=== PATIENT | female | born 1945 | race Caucasian/White ===

== ENCOUNTER 2017-11-18 17:23 | Emergency (ER) | payer MEDICARE ==
--- OUTSIDE RECORDS SUMMARY | 2017-11-18 18:07 | XMS REPORT ---
:1945 External Reference #:[id number] Author Organization [employer] Address [address] [address] Phone [phone] Care Team Providers Name Role Phone Heidi Molina MD Primary Care Physician Unavailable Payers Type Date Identification Payment Subscriber Numbers Provider Health Maintenance Effective: Policy Number: Medicare Blue [place] Organization ([facility]) 11/10/2013 [id number] [facility] Group Number: [id number] [address] PayID: [id number] [place] [address] [id number] Health Maintenance Expires: Policy Number: Medicare Blue [place] Organization ([facility]) 11/09/2012 [id number] [facility] PayID: [id number] [address] [address] [place] [address] [address] Problems Date Description Provider Status Onset: 11/01/2015 Localized, primary osteoarthritis Tony Johnson M.D. Active Onset: 11/01/2015 Arthroplasty of knee Tony Johnson M.D. Active Social History Type Date Description Comments Smoking Patient has never smoked Allergies, Adverse Reactions, Alerts Date Description Reaction Status Severity Comments 09/28/2015 NKDA active Medications Medication Date Status Form Strength Qnty SIG Indications Ordering Provider Amoxicillin 09/02/ Active Capsules 500mg 4caps 4 tablets 1 Tony 2015 hour before Alex, dental work M.DTita Simvastatin 00/00/ Active Tablets 20mg 90tab 1 po qhs Unknown 0000 s Metformin HCL 0000/ Active Tablets 850mg 1 by mouth Unknown 0000 twice a day Amlodipine 00/00/ Active Tablets 5mg 1 by mouth Unknown Besylate 0000 every day Losartan / Active Tablets 100-25mg 1 by mouth Unknown Potassium/Hyd 0000 every day rochlorothiaz kelle Zantac / Active Tablets 150mg 1 by mouth Unknown 0000 twice a day prn heartburn Aspirin / Active Chewtabs 81mg 1 po daily Unknown 0000 Tramadol HCL 05/03/ Hx Tablets 50mg 60tab 1-2 tabs by Z96.651 Tony 2016 - s mouth q4-6 [facility], 12/03/ hours as M.D. 2016 needed pain Zofran Odt 05/02/ Hx Tablets 4mg 60tab 1-2 tabs Tony 2015 - Dispers s under the [facility], 06/13/ tongue M.D. 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 2015 as directed Coumadin 09/28/ Hx Tablets 2mg 60tab Take 1-3 Kinsey 2014 - s tabs at [place], 04/06/ dinnertime M.D. 2016 as directed Percocet 09/28/ Hx Tablets 5-325mg 60tab 1 -2 tabs Tony 2015 - s by mouth [facility], 12/03/ every 6 M.D. 2017 hours as needed pain Voltaren 01/28/ Hx Gel 1% apply Tony 2011 - directly to [facility], 04/06/ painful M.D. 2016 area Proventil HFA / Hx Aerosol 108(90Bas 1unit 2 puffs po Unknown 0000 - e) s q 4 hours 09/27/ mcg/Act prn 2014 Aspirin Low / Hx Tablets 81mg 30tab 1 po qd Unknown Dose 0000 - s 2015 Combivent / Hx Aerosol 18-103mcg 1unit 2 puffs Unknown 0000 - /Act s poqid prn 2014 Depokote / Hx 750mg every h.s. Unknown 0000 - 2014 [place] / Hx Tablets 350mg 90tab bid prn Unknown 0000 - s 2014 [place] / Hx Tablets 10-325mg 40tab 1-2 po qid Unknown 0000 - s prn 2015 Paxil / Hx Tablets 40mg 1 po qd Unknown 0000 - 2014 Fluticasone / Hx Suspension 50mcg/Act 2 sprays Unknown Propionate 0000 - each 04/06/ nostril 2016 daily as needed Ocuvite / Hx Tablets 1 by mouth Unknown 0000 - every day 2015 Claritin-D 12 / Hx Tablets ER 5-120mg 1 by mouth Unknown Hour 0000 - 12HR twice a day 04/06/ for 1 week 2015 then as needed Medications Administered in Office Medication Date Status Form Strength Qnty SIG Indications Ordering Provider Depomedrol Administered Injection Kirsten 80MG 014 MADISON Lopez Depomedrol Administered Injection Tony 80MG 014 Alicia Johnson Depomedrol Administered Injection Tony 80MG 013 Alicia Johnson Depomedrol Administered Injection Tony 80MG 013 Alicia Johnson Depomedrol Administered Injection Tony 80MG 013 Alicia Johnson Depomedrol Administered Injection Tony 80MG 012 Alicia Johnson Vital Signs Date Vital Result Comment 10/30/2017 Height 62 inches 5'2" Weight 160.00 lb Heart Rate 60 /min BP Systolic 140 mmHg BP Diastolic 84 mmHg Respiratory Rate 16 /min Body Temperature 97.8 F BMI (Body Mass Index) 29.3 kg/m2 06/18/2017 Height 62 inches 5'2" Weight 160.00 lb Heart Rate 52 /min BP Systolic 136 mmHg BP Diastolic 77 mmHg Body Temperature 97.6 F BMI (Body Mass Index) 29.3 kg/m2 12/04/2016 Height 62 inches 5'2" Weight 160.00 lb BP Systolic Sitting 132 mmHg BP Diastolic Sitting 72 mmHg Pain Level 0 BMI (Body Mass Index) 29.3 kg/m2 07/03/2016 Height 62 inches 5'2" Weight 165.00 lb Pain Level 0 BMI (Body Mass Index) 30.2 kg/m2 05/03/2016 Height 62 inches 5'2" Weight 165.00 lb Pain Level 2 BMI (Body Mass Index) 30.2 kg/m2 04/10/2016 Height 62 inches 5'2" Weight 165.00 lb Heart Rate 59 /min BP Systolic 135 mmHg BP Diastolic 76 mmHg Pain Level 0 BMI (Body Mass Index) 30.2 kg/m2 12/21/2015 Height 62 inches 5'2" Weight 165.00 lb BMI (Body Mass Index) 30.2 kg/m2 11/01/2015 Height 62 inches 5'2" Weight 165.00 lb BMI (Body Mass Index) 30.2 kg/m2 09/28/2015 Height 63 inches 5'3" Weight 165.00 lb Heart Rate 71 /min BP Systolic 140 mmHg BP Diastolic 84 mmHg BMI (Body Mass Index) 29.2 kg/m2 09/21/2014 Height 62 inches 5'2" Heart Rate 68 /min BP Systolic 125 mmHg BP Diastolic 76 mmHg 03/23/2014 Height 62 inches 5'2" Heart Rate 64 /min BP Systolic 122 mmHg BP Diastolic 81 mmHg Results Test Date Test Result H/L Range Note Urine Culture And 04/10/2016 Urine Culture SEE RESULT BELOW 1 Sensitivities Urinalysis Profile 04/10/2016 Urine Color Straw Urine Appearance Clear Urine Specific [employer] 1.006 Low 1.010-1.030 Urine pH 6.0 5-9 Urine Urobilinogen Negative Negative Urine Ketones Negative Negative Urine Protein Negative Negative Urine Leukocytes 2+ Negative Urine Blood 1+ Negative Urine Nitrite Negative Negative Urine Bilirubin Negative Negative Urine Glucose Negative Negative Urine White Blood Cell Trace(0-5/hpf) Absent Urine Red Blood Cell Trace(0-2/hpf) Absent Urine Bacteria Absent Absent Urine Squamous Epithelial Cell Present Absent Urine Transitional Epithelial Present Absent Type & Screen 04/10/2016 Patient Blood Type O Positive 2 Antibody Screen NEGATIVE 2 Basic Metabolic Panel 04/10/2016 Sodium 135 mmol/L 133-145 2 Potassium 4.0 mmol/L 3.5-5.0 2 Chloride 98 mmol/L Low 101-111 2 Co2 Carbon Dioxide 31 mmol/L 22-32 2 Anion Gap 6 mmol/L 2-11 2 Glucose 90 mg/dL 70-100 2 Blood Urea Nitrogen 15 mg/dL 6-24 2 Creatinine 0.79 mg/dL 0.51-0.95 2 BUN/Creatinine Ratio 19.0 8-20 2 Calcium 10.0 mg/dL 8.6-10.3 2 Egfr Non- 71.5 >60 2 Egfr 92.0 >60 2, 3 Inr/Protime 04/10/2016 Inr 1.02 0.89-1.11 2 CBC No Diff 04/10/2016 White Blood Count 10.8 10^3/uL 3.5-10.8 2 Red Blood Count 4.93 10^6/uL 4.0-5.4 2 Hemoglobin 13.5 g/dL 12.0-16.0 2 Hematocrit 42 % 35-47 2 Mean Corpuscular Volume 85 fL 80-97 2 Mean Corpuscular Hemoglobin 27 pg 27-31 2 Mean Corpuscular HGB Conc 32 g/dL 31-36 2 Red Cell Distribution Width 16 % High 10.5-15 2 Platelet Count 345 10^3/uL 150-450 2 Mean Platelet Volume 7 um3 Low 7.4-10.4 2 CBC No Diff 10/12/2015 White Blood Count 10.3 10^3/uL 4.8-10.8 4 Red Blood Count 4.72 10^6/uL 4.0-5.4 4 Hemoglobin 13.9 g/dL 12.0-16.0 4 Hematocrit 41 % 35-47 4 Mean Corpuscular Volume 88 fL 80-97 4 Mean Corpuscular Hemoglobin 30 pg 27-31 4 Mean Corpuscular HGB Conc 34 g/dL 31-36 4 Red Cell Distribution Width 13 % 10.5-15 4 Platelet Count 296 10^3/uL 150-450 4 Mean Platelet Volume 7 um3 Low 7.4-10.4 4 Inr/Protime 10/12/2015 Inr 1.00 0.89-1.11 4 Laboratory test finding 10/12/2015 Partial Thrombo Time 35.3 seconds 26.0 -36.3 4, 5 PTT Type & Screen 10/12/2015 Patient Blood Type O Positive 4 Antibody Screen NEGATIVE 4 Urinalysis Profile 10/12/2015 Urine Color Yellow 4 Urine Appearance Clear 4 Urine Specific [employer] 1.012 1.010-1.030 4 Urine pH 7.0 5-9 4 Urine Urobilinogen Negative Negative 4 Urine Ketones Negative Negative 4 Urine Protein Negative Negative 4 Urine Leukocytes Trace Negative 4 Urine Blood Negative Negative 4 Urine Nitrite Negative Negative 4 Urine Bilirubin Negative Negative 4 Urine Glucose Negative Negative 4 Urine White Blood Cell Trace(0-5/hpf) Absent 4 Urine Red Blood Cell Trace(0-2/hpf) Absent 4 Urine Bacteria Absent Absent 4 Urine Squamous Epithelial Cell Present Absent 4 Laboratory test 10/12/2015 Urine Culture And SEE RESULT BELOW 4, 6 finding Sensitivities 1 SEE RESULT BELOW Name: DANIA HENDERSON : [address]: Tony Johnson MD Acct: [id number] Unit: [id number] AGE: 70 Location: [facility] Re04/10/16 SEX: F Status: REG REF SPEC: [id number] TALA: 04/10/16-[address] [facility] [address]: Tony Johnson MD REQ: [id number] RECD: 04/10/16 STATUS: RIANA DUNHAM DR: Heidi Molina MD _ SOURCE: URINE SPDESC: ORDERED: Urine Culture Procedure Result Reported Site Urine Culture Final 04/11/16- 1331 ML No growth of clinically significant organisms * ML - MAIN LAB ([facility]) . END OF REPORT * ML=Testing performed at Main Lab DEPARTMENT OF PATHOLOGY, [address] [place] [address] Augusto Moreira M.D. Director [facility] # [id number] 2 04/15 3 Because ethnic data is not always readily available, this report includes an eGFR for both -Americans and non- Americans. The National Kidney Disease Education Program (NKDEP) does not endorse the use of the MDRD equation for patients that are not between the ages of 18 and 70, are , have extremes of body size, muscle mass, or nutritional status, or are non- or non-. According to the National Kidney Foundation, irrespective of diagnosis, the stage of the disease is based on the level of kidney function: Stage Description GFR(mL/min/1.73 m(2)) 1 Kidney damage with normal or decreased GFR 90 2 Kidney damage with mild decrease in GFR 60-89 3 Moderate decrease in GFR 30-59 4 Severe decrease in GFR 15-29 5 Kidney failure <15 (or dialysis) 4 10/16 5 10/16 6 SEE RESULT BELOW Name: DANIA HENDERSON : [address]: Tony oJhnson MD Acct: [id number] Unit: [id number] AGE: 70 Location: LAB Re10/12/15 SEX: F Status: REG REF SPEC: [id number] TALA: 10/12/15-[address] [facility] [address]: Tony Johnson MD REQ: [id number] RECD: 10/12/154578 STATUS: COMP _ SOURCE: URINE SPDESC: ORDERED: Urine Culture COMMENTS: DELTA 10/16 QUERIES: Urine Source: Clean Catch Procedure Result Reported Site Urine Culture Final 12/04/15- 1302 ML Few Enterobacteriacae; possible contamination. * ML - MAIN LAB ([facility]) . END OF REPORT * ML=Testing performed at Main Lab DEPARTMENT OF PATHOLOGY, [address] [place] [address] Augusto Moreira M.D. Director [facility] # [id number] Procedures Date CPT Code Description Status 10/15/2016 38293 ECHO Transthorasic Realtime 2D W Doppler & Color Completed Flow Hosp 04/15/2016 57117 TKR Total Knee Replacement Completed 04/15/2016 06154 TKR Total Knee Replacement Completed 10/16/2015 74007 TKR Total Knee Replacement Completed 10/16/2015 86976 TKR Total Knee Replacement Completed 09/28/2015 31090 EKG, Interpretation Only Completed 09/21/2014 13802 Xray Knee 3 Views Completed 09/21/2014 74916 Xray Knee 3 Views Completed 09/21/201467450 Inject/Drain Joint/Bursa Major Completed 03/23/2014 Inject/Drain Joint/Bursa Major Completed 09/15/2013 Inject/Drain Joint/Bursa Major Completed 04/15/2013 Inject/Drain Joint/Bursa Major Completed 03/25/2013 74102 Rad Exam; Knee, Ap&L Completed 03/25/2013 63076 Xray Knee 3 Views Completed 03/25/2013 39293 Xray Knee 3 Views Completed 10/19/2012 11005 Arthroscopy,Knee,Meniscectomy Medial Or Lateral Completed 10/19/2012 28962 Arthroscopy,Knee,Meniscectomy Medial Or Lateral Completed 07/31/2012 66429 Arthroscopy,Knee,Meniscectomy Medial Or Lateral Completed 07/31/2012 96931 Arthroscopy,Knee,Meniscectomy Medial Or Lateral Completed 12/13/201178459 Inject/Drain Joint/Bursa Major Completed 12/03/2011 17419 Xray Knee 3 Views Completed 12/03/2011 47404 Xray Knee 3 Views Completed 12/03/2011 67064 Rad Exam; Knee, Ap&L Completed 12/03/2011 90658 Rad Exam; Knee, Ap&L Completed Encounters Type Date Location Provider CPT E/M Dx Office Visit 06/18/2017 [facility] Tony Alex, 49863 Z96.651 11:00a Of Naina Nelson96.Joey2 Z09 Z87.39 Office Visit 12/04/2016 11:15a [facility] Tony Johnson, 49733 M17.11 Naina Vargas Z96.651 Z47.1 Office Visit 10/16/2016 9:52a [facility], [place] [address] R55 Hospitalists E11.9 I10 Office Visit 10/15/2016 9:51a [facility], [place] [address] N12 Hospitalists E11.9 R55 I10 Office Visit 10/14/2016 9:51a [facility], [place], [address] N12 Hospitalists M.DTita E11.9 R55 I10 Office Visit 04/18/2016 2:01p [facility] Carlyn Cosby, 89874 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 82445 E11.9 Hospitalists E78.5 Z96.651 I10 Office Visit 04/16/2016 2:00p [facility], Bessy Peña N.P. 30257 E11.9 Hospitalists E78.5 Z96.651 I10 Office Visit 04/15/2016 1:59p [facility], Bessy Peña N.P. 10320 E11.9 Hospitalists E78.5 Z96.651 I10 Office Visit 12/21/2015 11:45a [facility] Tony Johnson, 72337 M17.11 Of Naina Vargas Office Visit 08/15/2015 9:00a [facility] Tony Johnson 72090 M25.561 Of C.MVelvet Vargas M25.562 M17.0 Office Visit 09/21/2014 3:00p [facility] Kirsten Lopez 09881 715.96 Of C.M.Ifeoma. ANP-C Office Visit 03/23/2014 11:00a [facility] Tony Johnson M.D. 27627 715.96 Of C.M.A. Office Visit 09/15/2013 8:45a [facility] Tony Johnson M.D. 19646 715.96 Of C.M.A. Office Visit 06/23/2013 11:30a [facility] Tony Johnson M.D. 38891 715.96 Of C.M.A. Office Visit 04/15/2013 3:15p [facility] Tony oJhnson M.D. 86098 715.96 Of C.M.A. Office Visit 03/25/2013 10:30a [facility] Tony Johnson M.D. 35383 715.96 Of C.M.A. Office Visit 10/15/2012 10:30a [facility] Tony Johnson M.D. 39301 836.0 Of C.M.A. Office Visit 06/17/2012 11:00a [facility] Tony Johnson M.D. 04868 836.0 Of C.M.A. Office Visit 03/25/2012 11:00a [facility] Tony Johnson M.D. 48901 715.96 Of C.M.A. Office Visit 01/29/2012 10:15a [facility] Uche Cobb [address]15.[address] [facility] [address] Office Visit 12/25/2011 11:15a [facility] Tony Johnson M.D. 49346 715.96 Of C.M.A. Office Visit 12/13/2011 10:00a [facility] Tony Johnson M.D. 35534 715.96 Of C.M.A. 836.0 Office Visit 12/03/2011 2:30p [facility] Of Tony Johnson 92859 715.96 C.M.A. MEkta 836.0 Plan of Care Future Appointment(s):11/27/2017 9:00 am - Joe Page MD at [facility]10/30/2017 - Joe Page, MDR10.11 Right upper quadrant painFollow up:after U/S
--- NOTE | 2017-11-18 20:27 | RAD ---
INDICATION: Right-sided abdominal pain COMPARISON: CT October 14, 2016 TECHNIQUE: Longitudinal and transverse scans of the right upper quadrant were obtained. Doppler interrogation of the hepatic and portal venous system was performed. FINDINGS: Liver: There is hepatomegaly with hepatic steatosis. There may be a tiny cyst in the hepatic lobe measuring 0.8 cm. The liver measures 20 cm in cephalocaudal dimension. Vessels: There is normal hepatic and portal venous flow. Bile ducts: There is no evidence of intrahepatic or extrahepatic ductal dilatation. The common duct measures 0.4 cm. Gallbladder: There is a small amount of gallbladder sludge and gravel. There is no thickening of the gallbladder wall or pericholecystic fluid. Pancreas: The visualized pancreas appears normal Right kidney: The right kidney is normal in size and echogenicity. There is a 1.1 cm cyst in lower pole. There are no calculi. There is no evidence of hydronephrosis. The right kidney measures 10.6 x 3.8 x 4.4 cm. IVC and aorta: The aorta and superior vena cava appear normal. Fluid: There is no ascites. Other: None. IMPRESSION: SMALL AMOUNT OF GALLBLADDER SLUDGE AND GRAVEL.
[2017-11-18 21:01] VITALS: BP 166/76
--- NOTE | 2017-11-18 21:14 | RAD ---
INDICATION: Chest pain COMPARISON: September 28, 2015 TECHNIQUE: PA and lateral dual-energy views were obtained. FINDINGS: Bones/Soft Tissues: There are no acute bony findings. Cardiomediastinal: The cardiomediastinal silhouette is normal. Lungs: There are no infiltrates. Pleura: There are no pleural effusions. Other: None IMPRESSION: NO ACTIVE DISEASE.
[2017-11-18 22:18] LABS: EGFR Non-African American 72.2 (>60)
[2017-11-18 22:33] LABS: ABS Basophils 0.1 10^3/ul (0-0.2); ABS Eosinophils 0.4 10^3/ul (0-0.6); ABS Lymphocytes 2.9 10^3/ul (1.0-4.8); ABS Monocytes 0.9 10^3/ul (0-0.8); ABS Neutrophils 10.5 10^3/ul (1.5-7.7); ABS Nucleated RBC 0 10^3/ul; Eosinophil % 2.7 % (0-6); Lymphocyte % 19.6 % (25-47); Nucleated Red Blood Cells % 0.1
[2017-11-18 22:34] LABS: Hematocrit 43 % (35-47); Hemoglobin 14.5 g/dl (12.0-16.0); Mean Corpuscular HGB Conc 34 g/dl (31-36); Mean Corpuscular Hemoglobin 29 pg (27-31); Mean Corpuscular Volume 86 fL (80-97); Red Blood Count 4.96 10^6/ul (4.0-5.4); Red Cell Distribution Width 13 % (10.5-15); White Blood Count 14.9 10^3/ul (3.5-10.8)
--- NOTE | 2017-11-20 13:49 | ED ---
Julian Veronica Stephanie, scribed for Garth Flores MD on 11/18/17 at 2120 . Abdominal Pain/Female - HPI Summary HPI Summary: The pt is a 72 y/o F presenting to the ED with c/o abd pain that began 2 weeks ago. The abd pain is located in her RUQ, is described as constant, and was at its worst earlier this morning. She describes her pain as a sore muscle. Symptoms include R arm soreness. She reports in September she had a gallbladder attack and had an US of the gallbladder but never received the results. Eating does not decrease/increase the pain. The pt denies fever, chills, sweats, cough , SOB, hematuria, and dysuria. The pt describes the pain as a 7 in severity. Pt administered Tylenol CHAINSTITCH SEAT JOINER to ED. - History of Current Complaint Chief Complaint: EDAbdPain Stated Complaint: RT FLANK PAIN Hx Obtained From: Patient Onset/Duration: Gradual Onset Timing: Constant Severity Currently: Moderate Pain Intensity: 6 Pain Scale Used: 0-10 Numeric Location: Discrete At: RUQ Aggravating Factor(s): Nothing Alleviating Factor(s): Nothing Associated Signs and Symptoms: Positive: Other: - Negative: chills, SOB, hematuria, dysuria. Negative: Diaphoresis, Fever, Cough Allergies/Adverse Reactions: Allergies Allergy/AdvReac Type Severity Reaction Status Date / Time No Known Allergies Allergy Verified 04/15/16 06:31 PMH/Surg Hx/FS Hx/Imm Hx Endocrine/Hematology History: Reports: Hx Diabetes - ORAL MED TYPE II Cardiovascular History: Reports: Hx Hypertension - ON MEDS FOR, Other Cardiovascular Problems/Disorders - HIGH CHOLESTEROL, ON MEDS FOR Respiratory History: Reports: Hx Pulmonary Embolism - HX OF MANY YEARS AGO- RELATED TO SMOKING AND CONTROL, Other Respiratory Problems/Disorders - CHRONIC SINUS CONGESTION GI History: Reports: Hx Gastroesophageal Reflux Disease - ON MEDS FOR Denies: Other GI Disorders Musculoskeletal History: Reports: Hx Arthritis - BILATERAL KNEE, FINGERS Denies: Other Musculoskeletal History Sensory History: Reports: Hx Cataracts - SAUNDRA, Hx Contacts or Glasses - GLASSES Denies: Hx Hearing Aid Opthamlomology History: Reports: Hx Cataracts - SAUNDRA, Hx Contacts or Glasses - GLASSES Neurological History: Reports: Hx Migraine - IN THE PAST, Hx Seizures - WITH STRESS, PASSES OUT, THEN SEIZURE, Other Neuro Impairments/Disorders - PT VASOVAGEL STRESS INDUCED, INFREQUENT Psychiatric History: Denies: Other Psychiatric Issues/Disorders Comment Only: Hx Anxiety - PANIC ATTACKS - Cancer History Hx Chemotherapy: No Hx Radiation Therapy: No - Surgical History Surgery Procedure, Year, and Place: RIGHT KNEE ARTHROSCOPY-07/2012. SINUS SURGERY-[facility]. APPENDECTOMY. TUBAL LIGATION-[facility] Hx Anesthesia Reactions: No Infectious Disease History: No Infectious Disease History: Denies: Hx Clostridium Difficile, Hx Hepatitis, Hx Human Immunodeficiency Virus (HIV), Hx of Known/Suspected MRSA, Hx Shingles, Hx Tuberculosis, Hx Known/ Suspected VRE, Hx Known/Suspected VRSA, History Other Infectious Disease, Traveled Outside the [place] in Last 30 Days - Family History Known Family History: Positive: Unknown - Pt denies family history when asked - Social History Occupation: Employed Full-time Lives: With Family Alcohol Use: Daily Alcohol Amount: 1 GLASS OF WINE OR BEER AT NIGHT Hx Substance Use: No Substance Use Type: Reports: None Hx Tobacco Use: Yes Smoking Status (MU): Former Smoker Amount Used/How Often: PACK A DAY Have You Smoked in the Last Year: No Review of Systems Negative: Fever, Chills, Skin Diaphoresis Negative: Erythema Negative: Sore Throat Negative: Chest Pain Negative: Shortness Of Breath, Cough Negative: Abdominal Pain, Vomiting, Nausea Negative: dysuria, hematuria Negative: Myalgia, Edema Negative: Rash Neurological: Other - Negative: dizziness All Other Systems Reviewed And Are Negative: Yes Physical Exam - Summary Physical Exam Summary: Constitutional: Well-developed, Well-nourished, Alert. (-) Distressed Skin: Warm, Dry HENT: Normocephalic; Atraumatic Eyes: Conjunctiva normal Neck: Musculoskeletal ROM normal neck. (-) JVD, (-) Stridor, (-) Tracheal deviation Cardio: Rhythm regular, rate normal, Heart sounds normal; Intact distal pulses; The pedal pulses are 2+ and symmetric. Radial pulses are 2+ and symmetric. (-) Murmur Pulmonary/Chest wall: Effort normal. (-) Respiratory distress, (-) Wheezes, (-) Rales Abd: mild RUQ tenderness, (-) Distension, (-) Guarding, (-) Rebound Musculoskeletal: (-) Edema Lymph: (-) Cervical adenopathy Neuro: Alert, Oriented x3 Psych: Mood and affect Normal Triage Information Reviewed: Yes Vital Signs On Initial Exam: Initial Vitals Temp Pulse Resp BP Pulse Ox 97.7 F 67 18 168/79 98 11/18/17 17:36 11/18/17 17:36 11/18/17 17:36 11/18/17 17:36 11/18/17 17:36 Vital Signs Reviewed: Yes Diagnostics - Vital Signs Vital Signs Temp Pulse Resp BP Pulse Ox 11/18/17 17:36 97.7 F 67 18 168/79 98 - Laboratory Result Diagrams: 11/18/17 21:25 11/18/17 21:25 Lab Statement: Any lab studies that have been ordered have been reviewed, and results considered in the medical decision making process. - Radiology CXR Xray Interpretation: No Acute Changes Radiology Interpretation Completed By: Radiologist - NO ACTIVE DISEASE. - EKG 21:24 EKG Rhythm: Sinus Rhythm - 64 BPM EKG Interpretation: No STEMI - Additional Comments Diagnostic Additional Comments: US reveals: SMALL AMOUNT OF GALLBLADDER SLUDGE AND GRAVEL. Abdominal Pain Fem Course/Dx - Course Course Of Treatment: The pt is a 72 y/o F presenting to the ED with c/o abd pain that began 2 weeks ago. The pain is located in her RUQ, is constant, and worsened this morning. She reports in September she had a gallbladder attack and had an US of the gallbladder but never received the results. Eating does not decrease/increase the pain. The pt denies fever, chills, sweats, cough, SOB, hematuria, and dysuria. The pt describes the pain as a 7 in severity. Pt administered Tylenol CHAINSTITCH SEAT JOINER to ED. All pain is resolved. ED physician suspects gallstones. Pt is nontender on exam. Follow up with Dr. River on . She has pain medication at home. - Diagnoses Provider Diagnoses: Biliary colic Discharge - Discharge Plan Condition: Stable Disposition: HOME Patient Education Materials: Biliary Colic (ED) Referrals: Heidi Molina MD [Primary Care Provider] - Additional Instructions: Follow up with Dr. River on . RETURN TO THE EMERGENCY DEPARTMENT FOR CHANGING OR WORSENING SYMPTOMS The documentation as recorded by the Julian loya Stephanie accurately reflects the service I personally performed and the decisions made by , Garth Flores MD.
== END 2017-11-18 23:25 | disposition home or self-care (01) ==
LOC: ED 17:23
DX: K80.50 Calculus of bile duct without cholangitis or cholecystitis without obstruction (principal); R10.11 Right upper quadrant pain; E11.9 Type 2 diabetes mellitus without complications; Z87.891 Personal history of nicotine dependence
CPT/HCPCS: 36415; 71046; 76705; 80053; 83690; 84484; 85025; 85379; 86141; 93005; 99282

== ENCOUNTER 2017-12-03 11:02 | Day surgery (SDC) | payer MEDICARE ==
[~2017-12-03 11:02] MED LIST: Buffered Lidocaine 0.9% SYRIN* 5 ML/SYR SYRINGE INTRADERM ONE
[2017-12-03] MEDS ORDERED: Buffered Lidocaine 0.9% SYRIN* 5 ML/SYR SYRINGE ONE (11:16)
[2017-12-03] MEDS ORDERED: ceFAZolin 2 GM PREMIX (*) 2 GM/50 ML BAG IVPB ONE (11:16)
[2017-12-03] MEDS ORDERED: Bupivacaine 0.25% SDV* 30 ML ONE (14:18)
[2017-12-03] MEDS ORDERED: fentaNYL* 50 MCG/ML 2 ML VIAL (100 MCG VIAL) ONE ×2 (14:42→14:59)
[2017-12-03] MEDS ORDERED: Succinylcholine* 20 MG/ML 10 ML VIAL ONE (14:51)
[2017-12-03] MEDS ORDERED: Lidocaine 2% PF * 5 ML VIAL ONE (14:51)
[2017-12-03] MEDS ORDERED: Ondansetron INJ* 2 MG/ML VIAL ONE (14:51)
[2017-12-03] MEDS ORDERED: Propofol* 10 MG/ML 20 ML BTL IV PUSH ONE (14:51)
[2017-12-03] MEDS ORDERED: Dexamethasone IV* 4 MG/ML 1 ML (4 MG) ONE (14:51)
[2017-12-03] MEDS ORDERED: EPHEDrine (Pressors)* 50 MG/ML VIAL ONE (14:56)
[2017-12-03] MEDS ORDERED: Naloxone* 0.4 MG/ML 1 ML VIAL IV PRN (15:17)
[2017-12-03] MEDS ORDERED: fentaNYL* 50 MCG/ML 2 ML VIAL (100 MCG VIAL) IV PRN (15:17)
[2017-12-03] MEDS ORDERED: Acetaminophen TAB* 325 MG PO PRN (15:17)
[2017-12-03] MEDS ORDERED: Metoclopramide IV* 5 MG/ML 2 ML VIAL IV PRN (15:17)
[2017-12-03] MEDS ORDERED: PROCHLORPERAZINE INJ 5 MG/ML 2 ML VIAL IV PRN (15:17)
--- NOTE | 2017-12-03 15:38 | BRIEFOPN ---
Brief Operative Note - Surgery Procedures: Procedures Pre-OP Diagnoses: chronic cholecystitis Post-op Diagnosis: same Procedure: Laparoscopic cholecystectomy Surgeon: Kaylee Asst: Shaheen Anethesia: NAGI EBL: minimal IVF: 900cc Specimen: gallbladder Drains: none
[2017-12-03] MEDS ORDERED: HYDROmorphone INJ* 2 MG/ML CARPUJECT SYRINGE ONE (16:04)
[2017-12-03] MEDS: HYDROmorphone INJ* 1 MG/ML CARPUJECT SYRINGE IV PRN ×5 (16:05→16:26)
[2017-12-03 16:44] VITALS: BP 149/74
--- NOTE | 2017-12-25 16:41 | OP ---
DATE OF OPERATION: 12/03/17 - [facility] Please note this is a late entry. DATE OF : 41 SURGEON: Joe Page MD. PROCUREMENT COST COORDINATOR: ARIK Woods ANESTHESIA: General. PRE-OP DIAGNOSIS: Chronic cholecystitis. POST-OP DIAGNOSIS: Chronic cholecystitis. OPERATIVE PROCEDURE: Laparoscopic cholecystectomy. ESTIMATED BLOOD LOSS: Minimal blood loss. FLUIDS: 900 cc of crystalloid fluid given. SPECIMEN: Gallbladder. DRAINS: None. DESCRIPTION OF PROCEDURE: The patient was identified in the preoperative area, marked, brought to the operating room and placed on the operating table in supine position. Preoperative antibiotics were given. Sequential devices were placed on bilateral lower extremities. General anesthesia was induced. The patient's abdomen was prepped and draped in a standard surgical fashion and time -out was performed. Folds of the umbilicus were elevated anteriorly and a Veress needle was inserted into the abdominal cavity, which was then allowed to insufflate to a pressure of 15 mmHg. The patient tolerated the insufflation well. A periumbilical incision was made and a 5-mm trocar was then inserted and laparoscope was inserted through this. There was no evidence of injury from the trocar insertion or from the Veress needle. Additional trocars were then placed in following position: 12 mm in the subxiphoid area and two 5 mm along the right costal margin. The table was repositioned. The gallbladder was identified. This showed some mild inflammation. This was grasped at the fundus. Blunt and sharp dissection was carried out to expose the infundibular area, which was grasped and retracted through the right lower quadrant exposing the Calot's triangle. Dissection was carried out, taken the peritoneum off of this area of the gallbladder and cystic duct, cystic artery were isolated. They were doubly clipped and ligated and the gallbladder was removed from the liver bed and placed in the endoscopic retrieval bag, brought up through the subxiphoid port site. Review of the abdomen showed no bleeding, no bile leak and table was repositioned. The abdomen was allowed to collapse and all trocars were removed under direct vision and all 4 skin incisions were reapproximated with 4-0 Monocryl subcuticular sutures, followed by Steri-Strips and sterile dressing. [id number] #: [id number] [facility]
== END 2017-12-03 16:55 | disposition home or self-care (01) ==
LOC: OR 11:02
PROVIDERS: ATTEND Surgery
DX: K80.10 Calculus of gallbladder with chronic cholecystitis without obstruction (principal); I10 Essential (primary) hypertension; E78.5 Hyperlipidemia, unspecified; Z87.891 Personal history of nicotine dependence; E11.9 Type 2 diabetes mellitus without complications; Z79.84 Long term (current) use of oral hypoglycemic drugs
CPT/HCPCS: 88304; J0330; J0690; J1100; J1170; J2405; J2704; J3010

== ENCOUNTER 2022-07-12 16:49 | Observation (INO) ==
[2022-07-12 17:58] LABS: ABS Basophils 0.1 10^3/ul (0-0.2); ABS Eosinophils 0.2 10^3/ul (0-0.6); ABS Lymphocytes 1.6 10^3/ul (1.0-4.8); ABS Monocytes 1.1 10^3/ul (0-0.8); ABS Neutrophils 9.1 10^3/ul (1.5-7.7); Eosinophil % 1.5 %; Hematocrit 40 % (35-47); Hemoglobin 13.6 g/dL (12.0-16.0); Lymphocyte % 13.2 %; Mean Corpuscular HGB Conc 34 g/dL (31-36); Mean Corpuscular Hemoglobin 28 pg (27-31); Mean Corpuscular Volume 83 fL (80-97); Mean Platelet Volume 7.7 fL (7.4-10.4); Nucleated Red Blood Cells % 0.1; Platelet Count 321 10^3/uL (150-450); Red Cell Distribution Width 14 % (10-15); White Blood Count 12.1 10^3/uL (3.5-10.8)
[2022-07-12 18:35] LABS: ALT 493 U/L (7-52); Albumin 4.8 g/dL (3.2-5.2); Albumin/Globulin Ratio 1.7 (1-3); Alkaline Phosphatase 185 U/L (35-149); Anion Gap 4 mmol/L (2-11); Blood Urea Nitrogen 19 mg/dL (6-24); C Reactive Protein 2.48 mg/L (<8.01); CO2 Carbon Dioxide 30 mmol/L (22-32); Calcium 10.3 mg/dL (8.6-10.3); Chloride 91 mmol/L (101-111); Globulin 2.9 g/dL (2-4); Glucose 109 mg/dL (70-100); Lipase 39 U/L (11.0-82.0); Sodium 125 mmol/L (135-145); Total Protein 7.7 g/dL (6.4-8.9); eGFR CKD-EPI 59.8 (>60)
[2022-07-12] MEDS ORDERED: NS 0.9% 1000 ml BAG 1,000 ML IV ONE (18:44)
[2022-07-12 19:12] LABS: Urine Appearance Clear; Urine Bilirubin Negative (Negative); Urine Blood Negative (Negative); Urine Color Yellow; Urine Glucose Negative (Negative); Urine Ketones Negative (Negative); Urine Nitrite Negative (Negative); Urine Protein Trace (Negative); Urine Urobilinogen 0.2 (Negative) (Negative); Urine pH 7.5 (5.0-9.0)
[2022-07-12 19:29] LABS: Urine Bacteria 1+ (Absent); Urine Red Blood Cell 1+(3-5/hpf) (Absent); Urine Squamous Epithelial Cell Present (Absent); Urine White Blood Cell 3+(>20/hpf) (Absent)
[2022-07-12] MEDS ORDERED: Iodixanol (CONTRAST) 320 MG/ML 100 ML SDV IV ONE (19:44)
[2022-07-12 22:54] LABS: Potassium Redraw 3.3 mmol/L (3.5-5.0)
[2022-07-12 22:55] LABS: Albumin 4.3 g/dL (3.2-5.2); Albumin/Globulin Ratio 1.8 (1-3); Direct Bilirubin 0.7 mg/dL (0.03-0.18); Globulin 2.4 g/dL (2-4); Indirect Bilirubin 1.7 mg/dL (0.3-1.0); Total Bilirubin 2.4 mg/dL (0.2-1.0); Total Protein 6.7 g/dL (6.4-8.9)
[2022-07-12] MEDS ORDERED: Lactated Ringers 1000 ml BAG 1,000 ML IV SCH (23:45)
[2022-07-12] MEDS ORDERED: Enoxaparin 40 MG/0.4 ML SYR SUBCUT SCH (23:45)
[2022-07-13] MEDS ORDERED: Potassium Chlor 20 meq TAB.ER PO ONE (00:06)
[2022-07-13 00:29] LABS: Magnesium 1.9 mg/dL (1.9-2.7)
[2022-07-13] MEDS ORDERED: Ondansetron 4 mg VIAL 2 MG/ML 2 ml VIAL IV PRN (00:29)
[2022-07-13] MEDS ORDERED: Morphine 2 MG/ML SYRINGE IV PRN (00:29)
[2022-07-13 02:23] LABS: Urine Osmo 354 mOsm/kg (150-1150)
[2022-07-13 07:33] LABS: Hematocrit 40 % (35-47); Hemoglobin 13.6 g/dL (12.0-16.0); Mean Corpuscular HGB Conc 34 g/dL (31-36); Mean Corpuscular Hemoglobin 29 pg (27-31); Mean Corpuscular Volume 85 fL (80-97); Mean Platelet Volume 6.9 fL (7.4-10.4); Platelet Count 327 10^3/uL (150-450); Red Blood Count 4.73 10^6 /uL (3.70-4.87); Red Cell Distribution Width 14 % (10-15); White Blood Count 9.9 10^3/uL (3.5-10.8)
[2022-07-13 07:45] LABS: INR 1.07 (0.89-1.11)
[2022-07-13 08:32] LABS: Albumin 4.6 g/dL (3.2-5.2); Albumin/Globulin Ratio 1.8 (1-3); Calcium 10.2 mg/dL (8.6-10.3); Globulin 2.6 g/dL (2-4); Total Bilirubin 2.2 mg/dL (0.2-1.0); Total Protein 7.2 g/dL (6.4-8.9); eGFR CKD-EPI 74.3 (>60)
[2022-07-13] MEDS ORDERED: Fluticasone NASAL SPRAY 50MCG 16 gm SPRAY BTL INTRANASAL SCH (09:00)
[2022-07-13 13:55] LABS: Albumin 4.3 g/dL (3.2-5.2); Albumin/Globulin Ratio 1.7 (1-3); Calcium 9.6 mg/dL (8.6-10.3); Globulin 2.5 g/dL (2-4); Potassium 4.1 mmol/L (3.5-5.0); Total Bilirubin 1.9 mg/dL (0.2-1.0); Total Protein 6.8 g/dL (6.4-8.9); eGFR CKD-EPI 77.7 (>60)
[2022-07-13 15:42] VITALS: BP 126/76
[2022-07-14 13:43] LABS: Hepatitis B Surface Antigen Nonreactive (Nonreactive)
[2022-07-14 13:48] LABS: Hepatitis A Ab IgM Negative (Negative); Hepatitis B Core IgM Nonreactive (Nonreactive)
[2022-07-14 14:00] LABS: Hepatitis B Surface Ab Not Immune (Immune); Hepatitis C Antibody Negative (Negative)
== END 2022-07-13 16:40 | disposition home or self-care (01) ==
LOC: ED 16:49 → EDHOLD 16:49 → SUATTDRO 23:47 → SSU 07-13 10:11
PROVIDERS: ADMIT Internal Medicine; ATTEND Internal Medicine